=== PATIENT | male | born 1950 | race Caucasian/White ===

== ENCOUNTER 2021-08-14 07:47 | Outpatient (CLI) | payer MEDICARE, OTHER, SELFPAY ==
--- NOTE | ~2021-08-14 | XR_ITS ---
XR chest 2V DATE: 08/14/2021 09:10 INDICATION: Shortness of breath, intermittent chest pain for one year TECHNIQUE: PA and lateral views COMPARISON: 04/01/2014 PA and lateral chest FINDINGS: Normal heart size. Aortic calcification and mild unfolding. No hilar or mediastinal enlarge ment. No pulmonary infiltrate or consolidation, pleural effusion or pulmonary vascular congestion or pneumo thorax. IMPRESSION: No active cardiopulmonary disease Reviewed, dictated and finalized at location A.
--- NOTE | 2021-08-15 13:42 | WPDPFTINT ---
PFT Procedure Performed PFT Procedure Performed Spirometry with Pre/Post Bronchodilator Plethysmography (Lung Vol) Diffusing Cap (DLCO) Flow Vol Loop PFT Interpretation DOS: 08/14/2021 REQUESTING: Dr. Sandor Mathews REASON FOR TESTING: Shortness of breath PULMONARY FUNCTION TESTS Results are reliable and reproducible. Spirometry: Pre-bronchodilator FEV1 is 82% predicted, 2.69 L. the pre bronchodilator FVC is 82% predicted, 3.59 L, normal. the FEV1/ FVC ratio is 75% predicted. after bronchodilator administration the FEV1 is 91% predicted, 3.02 L. This is a 12% increase and greater than 200 mils. This is statistically significant. Lung volumes: The total lung capacity is 92% predicted, 6.62 L, normal. The functional reserve capacity is 95% predicted, 3.66 L, normal. The residual volume is 99% predicted, 2.48 L, normal. The slow vital capacity is 94% predicted which is higher than the forced vital capacity, 82% predicted. This represents dynamic obstruction which is consistent with small airways disease. Diffusion: DLCO is 103%, normal. Flow volume loop: There is scooping of the expiratory limb consistent with obstruction. IMPRESSION: Spirometry shows a mild obstructive ventilatory impairment with a small airways pattern and a good response to bronchodilator, normal lung volumes and normal diffusion capacity. In the proper clinical setting. this may be consistent with asthma. Clarissa Farnsworth MD
== END 2021-08-14 07:48 | disposition home or self-care (01) ==
LOC: ANHPFT 07:51
PROVIDERS: Visit Provider Internal Medicine Pulmonary Disease
DX: R06.00 Dyspnea, unspecified (principal); R06.02 Shortness of breath
CPT/HCPCS: 71046; 94060; 94726; 94729

== ENCOUNTER 2022-07-28 09:03 | Emergency (ER) | payer MEDICARE, OTHER, SELFPAY ==
--- NOTE | 2022-07-28 09:13 | ED.URI ---
HPI - URI/Sore Throat General Chief Complaint: Upper Respiratory Infection Stated Complaint: Shortness of Breath,Congestion,Cough Time Seen by Provider: 07/28/22 09:14 Source: patient, RN notes reviewed and old records reviewed Mode of arrival: ambulatory Limitations: no limitations History of Present Illness HPI Narrative: 72 Year old male presents to the [facility] with complaints of chest tightness and shortness of breath that has been increasing over the last 5 days. Has a history of hypertension. Denies any with history of AFib. 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 States he has a constant chest tightness. Denies any swelling. Nausea or vomiting. Pain does not radiate anywhere. Pertinent past history: other (Hypertension) Onset (ago): day(s) (5) Related Data Home Medications Medication Instructions Recorded Confirmed B.animalis-B.bifidum-B.infantis-B.longum 1 tablet PO DAILY 07/19/21 07/28/22 10 mg-15 mg tablet,delay rel allopurinol 300 mg tablet 150 mg PO DAILY 07/19/21 07/28/22 hydrochlorothiazide 12.5 mg tablet 12.5 mg PO DAILY 07/19/21 07/28/22 lisinopril 10 mg tablet 15 mg PO DAILY 07/19/21 07/28/22 multivitamin 1 tablet PO DAILY 07/19/21 07/28/22 sildenafil 50 mg tablet 50 mg PO DAILY PRN Sexual Activity 07/19/21 07/28/22 Allergies Allergy/AdvReac Type Severity Reaction Status Date / Time No Known Allergies Allergy Verified 07/28/22 09:08 Review of Systems Review of Systems: All systems reviewed & are unremarkable except as noted in HPI and below Constitutional: Constitutional: Reports no additional constitutional complaints Eyes: Eyes: Reports no additional eye complaints ENT: Reports system reviewed and no additional complaints, except as documented Cardiovascular: Cardiovascular: Reports as per HPI, Reports chest pain, Reports chest pain at rest, Denies pedal edema, Denies edema, Reports irregular heart rhythm and Reports dyspnea Respiratory: Respiratory: Reports no additional respiratory complaints, Denies chest congestion, Denies cough and Denies dyspnea Gastrointestinal: Gastrointestinal: Reports no additional gastrointestinal complaints, Denies abdominal pain, Denies nausea and Denies vomiting Musculoskeletal: Musculoskeletal: Reports no additional musculoskeletal complaints Integumentary/Breasts: Skin/Breast: Reports system reviewed and no additional complaints, except as docu Neurologic: Reports system reviewed and no additional complaints, except as documented Psychiatric: Psychiatric: Reports no additional psychiatric complaints Allergic/Immunologic: Allergic/Immunologic: Reports no additional allergic/immunologic complaints PMFSH Past Medical History Medical History Arthritis Hypertension Kidney disease Family History Family History Father Diabetes mellitus Depression Mother Heart disease Diabetes mellitus Social History Social History Social History: Patient states he has not smoke in 48-50 years, only tried it as a young man. Smoking packs per day: 0.5 Smoking cigarettes per day: 10.0 Years smoked: 3 Smoking pack-years: 1.50 Smoking status: Former smoker Comments At the time of my signature, I reviewed and agree with the nursing past medical, surgical, social, and family history. There is no relevant family history pertinent to the patient complaint. Exam Const: General: cooperative, healthy appearing, comfortable, no acute distress, well developed, alert and well nourished Nutritional Appearance: well nourished Orientation/consciousness: patient oriented x3 Limitations: no limitations HENMT: Head: normal to inspection Ears: hearing grossly normal bilaterally and external ears normal Face/Nose/Sinus: Normal external nose present, Normal nares present, Normal nasal mucous me
[2022-07-28 09:15] VITALS: BP 143/84; PULSE 79; RESP 18; TEMP 36.8; O2SAT 98
--- NOTE | 2022-07-28 09:26 | ECG_ITS ---
Measurements Intervals [place] Rate: 120 P: [place]: 0 QRS: 32 QRSD: 97 T: 27 QT: 327 QTc: 462 Interpretive Statements ATRIAL FIBRILLATION WITH RAPID VENTRICULAR RESPONSE BASELINE ARTIFACT ABNORMAL ECG NO PREVIOUS ECG AVAILABLE FOR COMPARISON Electronically Signed On 07-28-2022 13:52:58 CDT by Reid Wynn M.D.
== END 2022-07-28 09:40 | disposition short-term general hospital (02) ==
PROVIDERS: Emergency Provider Nurse Practitioner
DX: I48.91 Unspecified atrial fibrillation (principal); I10 Essential (primary) hypertension; Z87.891 Personal history of nicotine dependence
CPT/HCPCS: 93005; 99215; G0463

== ENCOUNTER 2022-07-28 09:53 | Observation (INO) | payer MEDICARE, OTHER, SELFPAY ==
[2022-07-28] VITALS (13 sets, daily range): BP systolic 126–159; BP diastolic 75–113; PULSE 62–117; RESP 15–22; TEMP 36.3–37.1; O2SAT 95–99; BMI 25.2
--- NOTE | ~2022-07-28 | XR_ITS ---
XR chest 1V portable DATE: 07/28/2022 10:05 INDICATION: Cough. Chest pain. Atrial fibrillation. TECHNIQUE: Portable upright AP chest on July 28, 2022 at 1004 hours COMPARISON: August 14, 2021 PA and lateral chest FINDINGS: There is mild elevation of the right leaf of the diaphragm. There is suggestion of minimal atelectasis at the lung bases. Lungs otherwise appear clear. No pleural effusion or pulmonary vascula r congestion or pneumothorax is evident. Normal heart size. Aortic arch calcification, minimal aortic unfolding. Included skeletal structures appear unremarkable. IMPRESSION: Mild elevation right diaphragm and suggestion of minimal atelectasis at the lung bases Reviewed, dictated and finalized at location A. IMPRESSION: Mild elevation right diaphragm and suggestion of minimal atelectasi s at the lung bases
--- NOTE | 2022-07-28 09:57 | ECG_ITS ---
Measurements Intervals [place] Rate: 93 P: [place]: 0 QRS: 36 QRSD: 79 T: 34 QT: 316 QTc: 394 Interpretive Statements ATRIAL FIBRILLATION BASELINE ARTIFACT ABNORMAL ECG COMPARED TO ECG 07/28/2022 09:22:42 NO SIGNIFICANT CHANGES Electronically Signed On 07-28-2022 13:54:11 CDT by Reid Wynn M.D.
--- NOTE | 2022-07-28 10:07 | ED.ARRPALP ---
HPI - Arrhythmia/Palpitations General Chief Complaint: Arrhythmia/Palpitations <Leigh Hinds PA-C - Last Filed: 07/28/22 19:14> Stated Complaint: afib <Leigh Hinds PA-C - Last Filed: 07/28/22 19:14> Time Seen by Provider: 07/28/22 10:07 <Leigh Hinds PA-C - Last Filed: 07/28/22 19:14> Source: patient and old records reviewed <CHAITANYA Haro Last Filed: 07/28/22 19:14> Mode of arrival: EMS <CHAITANYA Haro Last Filed: 07/28/22 19:14> Limitations: no limitations <CHAITANYA Haro Last Filed: 07/28/22 19:14> History of Present Illness HPI narrative: Patient is a 72-year-old male who presents the ED via EMS with report of palpitations. Patient reports having a productive cough with brown sputum and chest congestion for the last 5 days. He has had intermittent shortness of breath, worse with laying flat, for the past few days. He denies aggravation with exertion and notes he rode an elliptical yesterday for 1 hour and 45 minutes w/o feeling SOB or having CP. Patient does report intermittent left sided CP and tightness for the last few days, which he reports is mostly related to his coughing. Again, denied aggravation with exertion. He went to an urgent care today and was noted to be in A-fib with RVR, heart rate 90s-120s. He was then referred to the ED for further evaluation. Patient believes he had a history of A-fib 15 years ago at which time he underwent extensive cardiac testing which resulted normal. He does follow with Dr. Mars, cardiology at [facility] yearly. He is not on any beta-blockers or anticoagulation. Denies any lower extremity pain or swelling, fevers, sore throat, nausea, vomiting, abdominal pain. <CHAITANYA Haro Last Filed: 07/28/22 19:14> Related Data Home Medications: Home Medications Medication Instructions Recorded Confirmed B.animalis-B.bifidum-B.infantis-B.longum 1 tablet PO DAILY 07/19/21 07/28/22 10 mg-15 mg tablet,delay rel allopurinol 300 mg tablet 300 mg PO DAILY 07/19/21 07/28/22 hydrochlorothiazide 12.5 mg tablet 12.5 mg PO DAILY 07/19/21 07/28/22 lisinopril 10 mg tablet 20 mg PO DAILY 07/19/21 07/28/22 multivitamin 1 tablet PO DAILY 07/19/21 07/28/22 sildenafil 50 mg tablet 50 mg PO DAILY PRN Sexual Activity 07/19/21 07/28/22 docusate sodium 100 mg capsule 100 mg PO BID 07/28/22 07/28/22 simvastatin 20 mg tablet (Zocor) 20 mg PO HS 07/28/22 07/28/22 <Leigh Hinds PA-C - Last Filed: 07/28/22 19:14> Allergies/Adverse Reactions: Allergies Allergy/AdvReac Type Severity Reaction Status Date / Time No Known Allergies Allergy Verified 07/28/22 09:08 <Leigh Hinds PA-C - Last Filed: 07/28/22 19:14> Review of Systems Review of Systems: CONSTITUTIONAL: Denies fever, chills, or sweats. ENT: See HPI. CARDIOVASCULAR: See HPI. RESPIRATORY: See HPI. GASTROINTESTINAL: Denies abdominal pain, nausea, vomiting, or diarrhea. GENITOURINARY: Denies dysuria or hematuria. SKIN: Denies rash or itching. MUSCULOSKELETAL: See HPI. <Leigh Hinds PA-C - Last Filed: 07/28/22 19:14> All systems reviewed & are unremarkable except as noted in HPI and below <Leigh Hinds PA-C - Last Filed: 07/28/22 19:14> PMFSH Past Medical History Medical History: Medical History Arthritis Gout Hypertension Kidney disease Paroxysmal atrial fibrillation <Leigh Hinds PA-C - Last Filed: 07/28/22 19:14> Surgical History Surgical History: Surgical History No pertinent past surgical history <Leigh Hinds PA-C - Last Filed: 07/28/22 19:14> Family History Family History: Family History Father Diabetes mellitus Depression Mother Hea
[2022-07-28 10:36] LABS: Basophils Absolute Auto 0.1 K/mm3 (0.0-0.1); Basophils Percent Auto 0.6 % (0.2-1.2); Eosinophils Absolute Auto 0.1 K/mm3 (0-0.3); Eosinophils Percent Auto 1.3 % (0-4.4); Hematocrit 49.3 % (42.0-52.0); Hemoglobin 16.5 g/dL (14.0-18.0); Immature Granulocyte Absolute 0.02 K/mm3 (0.00-0.031); Immature Granulocyte Percent A 0.2 % (0-0.5); Lymphocytes Absolute Auto 1.85 K/mm3 (0.9-3.2); Lymphocytes Percent Auto 19.3 % (18.3-44.2); Mean Corpuscular HGB Conc 33.5 g/dl (32-36); Mean Corpuscular Hemoglobin 32.4 pg (26-34); Mean Corpuscular Volume 96.7 fl (80-100); Mean Platelet Volume 10.8 fl (7.4-10.4); Monocytes Absolute Auto 1.2 K/mm3 (0.1-0.6); Neutrophils Absolute Auto 6.4 K/mm3 (1.3-6.7); Neutrophils Percent Auto 66.6 % (45.5-73.1); Platelet Count Result 190 k/mm3 (150-375); Red Cell Distribution Width 13.3 % (11.5-14.5); White Blood Count 9.6 K/mm3 (4.5-10.0)
[2022-07-28] MEDS: METOPROLOL TARTRATE INJ 5 MG/5 ML VIAL IV PUSH (10:41)
[2022-07-28] MEDS: SODIUM CHLORIDE 0.9% IV 1,000 ML 999 ML IV CONT (10:41)
[2022-07-28 10:50] LABS: Alanine Aminotransferase 42 U/L (6-50); Albumin Level 4.6 g/dL (3.5-5.1); Alkaline Phosphatase 111 U/L (38-126); Anion Gap 6 mmol/L (8-16); Aspartate Amino Transferase 43 U/L (17-59); Bilirubin,Total 0.6 mg/dL (0.2-1.3); Blood Urea Nitrogen 27 mg/dL (9-20); Calcium 10.3 mg/dL (8.4-10.2); Carbon Dioxide 32 mmol/L (22-30); Chloride 104 mmol/L (98-107); Estimated CRCL calculation 66 ml/min; Estimated Glomerular Filt Rate > 60; Glucose 105 mg/dL (65-110); Lipase 97 U/L (23-300); Potassium 4.4 mmol/L (3.4-5.0); Sodium 142 mmol/L (137-145)
[2022-07-28 10:51] LABS: Partial Thromboplastin Time 32.6 SECONDS (22.3-36.8); Prothrombin Time 13.2 Seconds (11.1-14.7)
--- NOTE | 2022-07-28 10:53 | ECG_ITS ---
Measurements Intervals [place] Rate: 64 P: 33 NM: 190 QRS: 31 QRSD: 81 T: 12 QT: 355 QTc: 368 Interpretive Statements SINUS RHYTHM NORMAL ECG COMPARED TO ECG 07/28/2022 10:01:30 SINUS RHYTHM NOW PRESENT Electronically Signed On 07-28-2022 13:56:04 CDT by Reid Wynn M.D.
[2022-07-28 10:59] LABS: Troponin I < 0.012 ng/mL (0.000-0.034)
[2022-07-28 11:10] LABS: Magnesium 1.9 mg/dL (1.6-2.3)
[2022-07-28 11:19] LABS: Influenza A QL RT-PCR Negative (Negative); Influenza B QL RT-PCR Negative (Negative); SARS-CoV-2 RNA PCR Negative
[2022-07-28] MEDS: ASPIRIN 81 MG CHEWABLE TABLET 324 MG PO (13:12)
[2022-07-28 13:27] LABS: NT Pro B Type Natriuretic Pept 435 pg/mL (19.9-100)
[2022-07-28 13:38] LABS: Troponin I < 0.012 ng/mL (0.000-0.034)
--- NOTE | 2022-07-28 15:00 | PM.IMHP ---
H&P: HPI History of Present Illness Date/Time: 07/28/22 15:00 Chief Complaint: Irregular heartbeat. Narrative: This is a very pleasant 72-year-old male with hypertension, gout, and history of a single episode of atrial fibrillation over 10 years ago who presented to the emergency department via EMS from a local urgent care for evaluation of an irregular heartbeat. Patient provides the following history. He has not felt well for last 5 days with a cough productive of brownish colored sputum, mild chest congestion, and intermittent shortness of breath. He also reports intermittent left-sided chest tightness for the last several days which he believes is related to coughing. His symptoms are not worse with exertion and in fact he was able to do the elliptical yesterday for an hour and 45 minutes without chest pain or shortness of breath. He went to urgent care today due to ongoing cough and congestion. At that time he was noted to be in and irregular heart rhythm and he was sent to the emergency department where on arrival he was in atrial fibrillation with rapid ventricular response. His heart rate ranged anywhere from the 90s to 120s and he converted to a normal sinus rhythm with IV metoprolol 5 mg x 1. He has remained in a sinus rhythm since that time. He is being admitted overnight for observation given reports of chest pain. His main complaint is that of his URI symptoms. He had a friend visiting from out of town the week or so ago who had similar symptoms and he presumes that is where he got his infection from. He tested negative for influenza and COVID in the ER. Chest x-ray showed mild elevation of right diaphragm and suggestion of minimal atelectasis at the lung bases. He has been afebrile and his white blood cell count is well within normal limits. He is followed by Dr. Mars that [facility] and within the last year so he has reportedly had a normal echocardiogram and stress test. Review of Systems Review of Systems: Twelve systems were reviewed. No fever, chills, or sweats. Had a mild sore throat and cough as detailed above. He complains of dry mouth in the morning which he attributes to his dental appliance. He previously were CPAP for approximately 1 year. He is not certain if the dental appliance is helpful or not but he denies paroxysmal nocturnal dyspnea and heavy snoring. He does sometimes not feel well rested upon waking however. No nausea, vomiting, or diarrhea. Except as documented, all other systems were reviewed and are negative. [facility] Past Medical History Medical History (Updated 07/28/22 @ 23:47 by Patricia Cartagena PA-C) Arthritis Gout Hypertension Kidney disease Paroxysmal atrial fibrillation Surgical History Surgical History (Updated 07/28/22 @ 23:46 by Patricia Cartagena PA-C) History of colonoscopy with polypectomy History of elbow surgery Several surgeries on the right elbow including ORIF of radial head fracture and 2 scopes. History of toe surgery No pertinent past surgical history Family History Family History Father Diabetes mellitus Depression Mother Heart disease Diabetes mellitus Social History Social History (Updated 07/28/22 @ 23:46 by Patricia Cartagena PA-C) Social History: Surrogate medical decision maker: Beti Barlow, spouse. Code status: Full code. Smoking packs per day: 0.5 Smoking cigarettes per day: 10.0 Years smoked: 3 Smoking pack-years: 1.50 Smoking status: Never smoker Alcohol intake: never Substance use: never Lack of Transportation: No Lack of Food: Never True Current Housing: I Have Housing Concerned About Future Housing: No Difficulty Paying Gas/Electric Bills: No Difficulty Paying for Meds: No Currently Unemployed: No Education: Master's Degree or Higher Difficulty w/ Childcare or Family Care: No Additional living arrangements comments: Lives with spouse in [facility]
--- NOTE | 2022-07-28 15:03 | PC.NURSE ---
This patient, Diego Barlow, was admitted to IMU Room 205-01. Patient/family oriented to hospital policies and general routines including ID bracelet, bed and alarms, visiting hours, pain management, procedures, bathroom and other care routines, personal items, smoking policy, room service/diet, and visiting hours. Information on how to activate the Rapid Response Team has been discussed. Patient/Family are encouraged to report perceived risks to care and to ask questions if they do not understand what they are told or what they should do.
[2022-07-28 16:38] LABS: Troponin I < 0.012 ng/mL (0.000-0.034)
[2022-07-29] VITALS (8 sets, daily range): BP systolic 124–153; BP diastolic 62–76; PULSE 64–90; RESP 16–20; TEMP 36.3–37.2; O2SAT 93–97
[2022-07-29] MEDS: SIMVASTATIN 20 MG TABLET PO (00:23)
[2022-07-29 05:16] LABS: Hematocrit 41.9 % (42.0-52.0); Hemoglobin 14.2 g/dL (14.0-18.0); Mean Corpuscular HGB Conc 33.9 g/dl (32-36); Mean Corpuscular Hemoglobin 32.1 pg (26-34); Mean Corpuscular Volume 94.8 fl (80-100); Mean Platelet Volume 11.2 fl (7.4-10.4); Platelet Count Result 183 k/mm3 (150-375); Red Blood Count 4.42 M/mm3 (4.6-6.20); Red Cell Distribution Width 13.3 % (11.5-14.5); White Blood Count 8.8 K/mm3 (4.5-10.0)
[2022-07-29 05:48] LABS: Anion Gap 2 mmol/L (8-16); Blood Urea Nitrogen 23 mg/dL (9-20); Calcium 9.5 mg/dL (8.4-10.2); Carbon Dioxide 31 mmol/L (22-30); Chloride 107 mmol/L (98-107); Estimated CRCL calculation 66 ml/min; Estimated Glomerular Filt Rate > 60; Glucose 95 mg/dL (65-110); Potassium 3.9 mmol/L (3.4-5.0); Sodium 140 mmol/L (137-145)
[2022-07-29 06:02] LABS: Magnesium 1.9 mg/dL (1.6-2.3)
[2022-07-29] MEDS: MULTIVITAMINS THERAPEUTIC TAB (*BKC) 1 TABLET PO (08:58)
[2022-07-29] MEDS: ACIDOPHILUS/BULGARICUS CHEWABLE TABLET 2 TABLET BY MOUTH (08:59)
[2022-07-29] MEDS: allopurinoL 300 MG TABLET PO (08:59)
[2022-07-29] MEDS: guaiFENesin 12 HR 600 MG TABCR PO (08:59)
[2022-07-29] MEDS: lisinopriL 20 MG TABLET PO (08:59)
[2022-07-29] MEDS: DOCUSATE SODIUM 100 MG CAPSULE PO (08:59)
[2022-07-29] MEDS: METOPROLOL SUCCINATE EXT REL 25 MG TABCR PO (09:01)
--- NOTE | 2022-07-29 10:19 | PM.CNCAR ---
Assessment and Plan Assessment and plan (1) Paroxysmal atrial fibrillation: Code(s): I48.0 - Paroxysmal atrial fibrillation Status: Acute Assessment and Plan: patient reports remote history of brief atrial fibrillation without recurrence over the past 10-15 years per his knowledge now presents with AFib with RVR in setting of URI otherwise asymptomatic. Atrial flutter is also transiently noted on telemetry of abdominal mean sinus rhythm after initiation of beta-jessee therapy. CHADS2 Vasc score 2 ( hypertension, age greater than 65) and which systemic anticoagulation is warranted. He has no contraindications. Explained the embolic stroke risk with atrial fibrillation and bleeding risk with systemic anticoagulation. Patient verbalized understanding and agreed with plan of care including systemic anticoagulation. 2D echocardiogram revealed preserved LV systolic function without significant valve pathology or other explanation. TSH normal electrolytes stable. No other treatable identifiable reversible cause identified although likely his URI may have contributed but certainly is not the sole explanation for atrial fibrillation. In other words, the likelihood of recurrence of AFib is high and stroke risk reduction with anticoagulation is strongly advised. Patient also agrees with this plan of care. Patient is stable from a cardiac perspective. We did discuss risks versus benefits particular bleeding and stroke as noted above. Will follow up with his primary rn correctional as an outpatient in next 2-4 weeks upon discharge. he had a negative stress test March 2021. Chest pain symptoms atypical. Exacerbated by coughing in setting of URI. (2) Hypertension: Code(s): I10 - Essential (primary) hypertension Status: Chronic Assessment and Plan: Stable, no acute issues. Continue medical therapy Lisinopril 20 mg daily, hydrochlorothiazide 12.5 mg daily. BP reasonably controlled. (3) Viral upper respiratory infection: Code(s): J06.9 - Acute upper respiratory infection, unspecified Status: Acute Assessment and Plan: Management per primary service. Conservative management appears reasonable. (4) Mixed hyperlipidemia: Code(s): E78.2 - Mixed hyperlipidemia Status: Acute Assessment and Plan: Continue Simvastatin therapy. History of Present Illness History of Present Illness Consult date/time: Date of service: 07/29/22 10:19 Requesting physician: Patricia Cartagena PA-C Consult reason: atrial fibrillation Reason For Visit: Afib w RVR, chest pain Narrative: patient is a very pleasant 72-year-old male with a past medical history significant for hypertension, hyperlipidemia and remote history of reported atrial fibrillation approximately 10-15 years ago without noted recurrence he states he had previously been in his usual state of health when approximately 5 days ago began to feel less well more fatigued, chest congestion, productive cough and intermittent shortness of breath. He also notes left-sided chest tightness with coughing for the past several days otherwise non exertional. Symptoms are not exacerbated with activity and was able to exercise for over 1-1/2 hours the day prior to presentation without limiting symptoms. Due to the persistence of his symptoms he went to urgent care for evaluation and given his report of chest pain they obtained EKG which revealed atrial fibrillation with rapid ventricular response for which he was referred to the emergency department. he was subsequently given metoprolol 5 mg IV converted to sinus rhythm. He had intermittent episodes of atrial fibrillation and probable atrial flutter but predominantly maintaining sinus rhythm. He is in sinus rhythm with premature atrial contractions. He was not aware of atrial fibrillation any time. He denies palpitations, stroke, known CAD, CHF, myocardial infarction, diabetes mellit
--- NOTE | 2022-07-29 12:27 | PM.DS ---
DS: Admitting Diagnosis Discharge Date July 29, 2022 Admitting Diagnosis AFib DS: Discharge Diagnosis Discharge Diagnosis (1) Atrial fibrillation with rapid ventricular response: Code(s): I48.91 - Unspecified atrial fibrillation Status: Acute Assessment and Plan: The patient presented to urgent care for evaluation of URI symptoms as above and was found to be in atrial fibrillation with rapid ventricular response. He has since converted to normal sinus rhythm after receiving metoprolol 5 mg IV push x1 in the ED. (2) Chest pain: Qualifiers: Chest pain type: unspecified Qualified Code(s): R07.9 - Chest pain, unspecified Code(s): R07.9 - Chest pain, unspecified Status: Acute Assessment and Plan: Patient complained of some left-sided chest discomfort though that seems to be more related to coughing. He has rule out for acute coronary syndrome by serial troponins. EKGs were reviewed and there are no ST segment depressions or elevations. He has an appointment with his Cardiology within the next month or so and he can likely be discharged to follow-up with her tomorrow. (3) Viral upper respiratory infection: Code(s): J06.9 - Acute upper respiratory infection, unspecified Status: Acute Assessment and Plan: No indication for antibiotics. No evidence of pneumonia on imaging. Continue supportive care. (4) Hypertension: Code(s): I10 - Essential (primary) hypertension Status: Chronic Assessment and Plan: High SBP in the ED was 159/113 but they have been well within normal limits since that time. Continue antihypertensives, monitor. (5) Gout: Code(s): M10.9 - Gout, unspecified Status: Acute Assessment and Plan: No acute issues. continue allopurinol. DS: Summary Hospital Course Hospital Course: Patient was admitted for AFib RVR 1 dose of IV metoprolol he spontaneously converted to sinus rhythm with frequent PACs. He does follow with Cardiology as an outpatient and has had a negative this ischemic workup recently. We will add a beta-jessee and Xarelto and patient can be discharged. 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 Weight: 84.4 kg. BMI: 25.2. HEENT: Wearing corrective lenses and hearing aids. PERRL, EOMI. Sclera anicteric. Oral mucosa moist. Neck: Supple. No JVD or lymphadenopathy. Respiratory: Lungs are clear to auscultation bilaterally. Occasional cough. Cardiovascular: Regular rate and rhythm with S1-S2. Gastrointestinal: Abdomen is soft, nontender, and nondistended with positive bowel sounds. Skin: Warm and dry. No rash or lesions on limited exam. Extremities: No cyanosis, clubbing, or edema. Radial and pedal pulses intact. Neurological: Alert. Cranial nerves 2-12 are grossly intact. No gross focal deficits to casual conversation. Psychiatric: Pleasant and cooperative with normal mood and affect. Judgment and insight intact. DS: Data Data Completed and Pending Labs on day of discharge: Labs from last 24 hours 07/29/22 07/29/22 07/29/22 04:31 04:31 04:31 WBC 8.8 RBC 4.42 L Hgb 14.2 Hct 41.9 L MCV 94.8 MCH 32.1 MCHC 33.9 RDW 13.3 Plt Count 183 MPV 11.2 H Sodium 140 Potassium 3.9 Chloride 107 Carbon Dioxide 31 H Anion Gap 2 L BUN 23 H Creatinine 1.00 Estim Creat Clear Calc 66 Estimated GFR > 60 Glucose 95 Calcium 9.5 Magnesium 1.9 Troponin I NT-Pro-B Natriuret Pep TSH (Reflex) 3.070 07/28/22 07/28/22 07/28/22 16:10 13:12 10:27 WBC RBC Hgb Hct MCV MCH MCHC RDW Plt Count MPV Sodium Potassium Chloride Carbon Dioxide Anion Gap
--- NOTE | 2022-07-29 14:35 | ECHO_ITS ---
Patient Info Name: Diego Barlow Age: 72 years : 1950 Gender: Male Ht: 72 in Wt: 179 lbs BSA: 2.04 m2 HR: 70 bpm BP: 126 / 64 mmHg Heart Rhythm: Sinus Rhythm Technical Quality: Fair Exam Date: 07/29/2022 9:45 AM Exam Location: [facility] Patient Status: Outpatient Admit Date: 07/28/2022 Staff Ordering Physician: Patricia Cartagena PA-C Lead Instructor/Flight Attendant: Yolanda Nolan RDCS Attending Provider: Sandor Horn MD Referring Physician: Mitzi MANCIA; Exam Type: CA echo doppler color flow Study Info Indications - HTN R07.9 - Chest pain, unspecified Complete two-dimensional, color flow and Doppler transthoracic echocardiogram is performed. Summary 1. Complete two-dimensional, color flow and Doppler transthoracic echocardiogram is performed. 2. Left ventricular chamber dimension is normal. 3. Left ventricular systolic function is normal, estimated at 65-70%. 4. There is mildly increased left ventricular wall thickness. 5. The left ventricular diastolic function is grade I diastolic dysfunction. 6. Right atrial chamber dimension is mildly enlarged. 7. There is no aortic valve stenosis. 8. There is mild mitral valve regurgitation. Left Ventricle Left ventricular chamber dimension is normal. Left ventricular systolic function is normal, estimated at 65-70%. There is mildly increased left ventricular wall thickness. The left ventricular diastolic function is grade I diastolic dysfunction. Right Ventricle Right ventricular chamber dimension is normal. Right ventricular systolic function is normal. Left Atria Left atrial chamber dimension is normal. Right Atria Right atrial chamber dimension is mildly enlarged. Aortic Valve The aortic valve is trileaflet. There is no aortic valve stenosis. There is no aortic valve regurgitation. Pulmonic Valve The pulmonic valve is not well visualized. There is trace pulmonic regurgitation. Mitral Valve The mitral valve has normal leaflets. There is mild mitral valve regurgitation. The mitral valve annulus is mildly calcified. Tricuspid Valve The tricuspid valve leaflets are normal. There is trace tricuspid valve regurgitation. Unable to estimate PA systolic pressure due to poor spectral resolution of tricuspid regurgitant jet velocity. Pericardium/Pleural The pericardium appears normal. There is no pericardial effusion. Inferior Vena Cava Normal inferior vena cava with >50% collapse upon inspiration consistent with normal right atrial pressure, 5 mmHg. Aorta The aortic root size at the sinus of Valsalva is normal. Left Ventricular Outflow Tract Name Value Normal LVOT 2D LVOT Diameter 2.0 cm LVOT Doppler LVOT Peak Gradient 4 mmHg LVOT Mean Gradient 2 mmHg LVOT VTI 20 cm LVOT VTI/AV VTI Ratio 0.9 LVOT Stroke Volume 63 ml LVOT CO 4.4 l/min LVOT CI 2.2 l/min/m2 Pulmonic Valve --------
== END 2022-07-29 13:47 | disposition home or self-care (01) ==
LOC: ANHED 13:29 → ANHIMU 14:16
PROVIDERS: Emergency Medicine; Physician Assistant; Admitting Provider Chiropractor; Emergency Provider Physician Assistant; Visit Provider Chiropractor
DX: I48.91 Unspecified atrial fibrillation (principal); R07.9 Chest pain, unspecified; J06.9 Acute upper respiratory infection, unspecified; I11.9 Hypertensive heart disease without heart failure; Z20.822 Contact with and (suspected) exposure to COVID-19; M10.9 Gout, unspecified; N28.9 Disorder of kidney and ureter, unspecified; M19.90 Unspecified osteoarthritis, unspecified site; R06.02 Shortness of breath; R94.31 Abnormal electrocardiogram [ECG] [EKG]; Z79.899 Other long term (current) drug therapy; Z82.49 Family history of ischemic heart disease and other diseases of the circulatory system
CPT/HCPCS: 36415; 71045; 80048; 80053; 83690; 83735; 83880; 84443; 84484; 85025; 85027; 85380; 85610; 85730; 87636; 93005; 93306; 96361; 96374; 99285; A9270; G0378; J1650; J7030

== ENCOUNTER 2022-10-24 02:38 | Emergency (ER) | payer MEDICARE, OTHER, SELFPAY ==
--- NOTE | ~2022-10-24 | CT_ITS ---
Non-contrast Head CT History: Headache COMPARISON: 01/29/2011 Technique: Axial non-contrast imaging of the brain was performed. Dose reduction technique was used on this scan by utilizing automated exposure control and iterative reconstruction technique. The dose -length product (DLP) was 605.33 mGy-cm. Findings: There is no evidence of intracranial hemorrhage, mass lesion, or acute infarct. Brain par enchyma appears normal. The ventricles and subarachnoid spaces are normal in size. The calvarium ap pears normal. The visualized paranasal sinuses and mastoid air cells are clear. Impression: No significant abnormality seen. Reviewed, dictated and finalized at location . Impression: No significant abnormality seen.
[2022-10-24 02:41] VITALS: BP 181/80; PULSE 52; RESP 20; TEMP 36.8; O2SAT 96
[2022-10-24 03:39] VITALS: PULSE 50
[2022-10-24 03:40] VITALS: BP 157/87; PULSE 54; RESP 13; TEMP 36.6; O2SAT 97
--- NOTE | 2022-10-24 03:55 | ED.GENADULT ---
HPI - General Adult General Chief complaint: Unspecified Stated complaint: high blood pressure Time Seen by Provider: 10/24/22 03:39 History of Present Illness HPI narrative: This is a 72-year-old male presenting ED with chief complaint of elevated blood pressure. Patient states he has been having trouble sleeping last couple nights. He woke up and had a slight headache that he describes as a pressure on the top of his head this morning for 3 days. It is nonradiating, 2/10 intensity and constant. Is worse the morning. He has never had headaches like this before there are no exacerbating or alleviating factors. He is not taking anything for pain control. His blood pressure was high as 190/110 at home. He has no chest pain, neurologic deficits or difficulty breathing. Patient is on Eliquis for paroxysmal AFib. Denies any falls/trauma. Related Data Home Medications Medication Instructions Recorded Confirmed B.animalis-B.bifidum-B.infantis-B.longum 1 tablet PO DAILY 07/19/21 07/28/22 10 mg-15 mg tablet,delay rel allopurinol 300 mg tablet 300 mg PO DAILY 07/19/21 07/28/22 hydrochlorothiazide 12.5 mg tablet 12.5 mg PO DAILY 07/19/21 07/28/22 lisinopril 10 mg tablet 20 mg PO DAILY 07/19/21 07/28/22 multivitamin 1 tablet PO DAILY 07/19/21 07/28/22 sildenafil 50 mg tablet 50 mg PO DAILY PRN Sexual Activity 07/19/21 07/28/22 docusate sodium 100 mg capsule 100 mg PO BID 07/28/22 07/28/22 simvastatin 20 mg tablet (Zocor) 20 mg PO HS 07/28/22 07/28/22 Allergies Allergy/AdvReac Type Severity Reaction Status Date / Time No Known Allergies Allergy Verified 09/25/22 15:27 [facility] Past Medical History Medical History Arthritis Gout Hypertension Kidney disease Paroxysmal atrial fibrillation Surgical History Surgical History History of colonoscopy with polypectomy History of elbow surgery Several surgeries on the right elbow including ORIF of radial head fracture and 2 scopes. History of toe surgery No pertinent past surgical history Family History Family History Father Diabetes mellitus Depression Mother Heart disease Diabetes mellitus Social History Social History Social History: Surrogate medical decision maker: Beti Barlow, spouse. Code status: Full code. Smoking packs per day: 0.5 Smoking cigarettes per day: 10.0 Years smoked: 3 Smoking pack-years: 1.50 Smoking status: Never smoker Alcohol intake: never Substance use: never Lack of Transportation: No Lack of Food: Never True Current Housing: I Have Housing Concerned About Future Housing: No Difficulty Paying Gas/Electric Bills: No Difficulty Paying for Meds: No Currently Unemployed: No Education: Master's Degree or Higher Difficulty w/ Childcare or Family Care: No Additional living arrangements comments: Lives with spouse in [place]. Additional occupation/education comments: Retired after 30 years. Worked for the [employer] thereafter. Spiritual care concerns: No Exam Narrative: APPEARANCE: No apparent distress., polite and pleasant during the interview Head: atraumatic. EYES: EOMI, [place] NOSE: Atraumatic NECK: Trachea midline RESPIRATORY: No increased rate of breathing Clear to auscultation CARDIOVASCULAR: RRR, no peripheral edema ABDOMINAL: Non-distended soft no guarding rebound MUSCULOSKELETAl: No obvious deformities NEURO: Alert. Cranial nerves 2-12 grossly intact. Sensation light touch, motor function cerebellar function intact for 4 extremities. Gait exam was normal. SKIN:: Warm, dry. Normal color PSYCHIATRIC: Normal affect Course Vital Signs Vital signs: Vital Signs Temperature 98.2 F 10/24/22 02:41 Pulse Rate 52 L 10/24/22 02:41
--- NOTE | 2022-10-24 03:58 | PC.NURSE ---
Per EDP Dr. Gaviria, EKG not needed for this patient
[2022-10-24] MEDS: ACETAMINOPHEN 500 MG TABLET 1000 MG PO (04:24)
[2022-10-24 04:27] VITALS: BP 182/87; PULSE 48; RESP 14; O2SAT 94
[2022-10-24 05:23] VITALS: BP 152/91; PULSE 49; RESP 15; TEMP 36.7; O2SAT 97
== END 2022-10-24 05:25 | disposition home or self-care (01) ==
PROVIDERS: Emergency Provider Emergency Medicine
DX: R51.9 Headache, unspecified (principal); I10 Essential (primary) hypertension; I48.0 Paroxysmal atrial fibrillation; F17.210 Nicotine dependence, cigarettes, uncomplicated; Z79.01 Long term (current) use of anticoagulants
CPT/HCPCS: 70450; 99284; A9270